=== PATIENT | male | born 1990 | race Caucasian/White ===

== ENCOUNTER 2017-05-19 16:58 | Emergency (ER) | payer MEDICAID ==
[2017-05-19] MEDS: HYDROCODONE/APAP (5/325) TAB PO (17:22)
== END 2017-05-19 19:10 | disposition home or self-care (01) ==
LOC: FTE 16:58
DX: S20.211A Contusion of right front wall of thorax, initial encounter (principal); W20.8XXA Other cause of strike by thrown, projected or falling object, initial encounter; Y92.89 Other specified places as the place of occurrence of the external cause
CPT/HCPCS: 71100; 99283-25